=== PATIENT | male | born 1985 | race African-American/Black ===

== ENCOUNTER 2018-06-25 10:51 | Day surgery (SDC) | payer OTHER ==
--- NOTE | 2018-06-25 11:02 | ANESTHESIA ---
Pre-Anesthesia VS, & Labs - Diagnosis Left distal radius fx - Procedure ORIF left distal radius Height 5 ft 10 in Weight (kg) 86.18 kg - NPO >8 hours - Lab Results Lab results reviewed: No Home Medications and Allergies Home Medications: Ambulatory Orders Hydrocodone/Acetaminophen [Vicodin 5-300 mg Tablet] 1 each PO PRN PRN 06/24/18 Hydrocodone/Acetaminophen [Vicodin 5-300 mg Tablet] 1 each PO PRN 06/24/18 Allergies/Adverse Reactions: Allergies Allergy/AdvReac Type Severity Reaction Status Date / Time No Known Drug Allergies Allergy Verified 06/24/18 11:04 Anes History & Medical History - Anesthetic History Anesthesia Complications: reports: No previous complications Family history of Anesthesia Complications: Denies Family history of Malignant Hyperthermia: Denies - Medical History Cardiovascular: reports: None Pulmonary: reports: None Gastrointestinal: reports: None Urinary: reports: None Neuro: reports: None Musculoskeletal: reports: None, Other Endocrine/Autoimmune: reports: None Blood Disorders: reports: None Skin: reports: None Smoking Status: Never smoker Psychosocial: reports: No issues indicated - Surgical History General: Other Exam General: Alert Dental: WNL Mouth Opening: Greater than 4 Fingerbreadths Neck Mobility: Normal Mallampati classification: II Thyromental Distance: greater than 6 cm Plan Anesthesia Type: General Consent for Procedure(s) Verified and Reviewed: Yes Code Status: Attempt Resuscitation ASA classification: 1-Healthy patient Is this case an emergency?: No
[2018-06-25] MEDS ORDERED: BUPIVACAINE 0.5% PF 30 ML VIAL ONE (11:04)
[2018-06-25] MEDS ORDERED: LACTATED RINGERS 1,000 ML IV ONE ×2 (11:11→14:02)
[2018-06-25] MEDS ORDERED: ceFAZolin 2 GM/50 ML 2 GM/50 ML BAG IV ONE (11:25)
[2018-06-25] MEDS ORDERED: BUPIVACAINE 0.5% PF 30 ML VIAL INFIL ONE ×2 (12:36)
[2018-06-25] MEDS ORDERED: fentaNYL 100 MCG/2 ML VIAL IVP ONE (13:15)
[2018-06-25] MEDS ORDERED: PROPOFOL 200 MG/20 ML VIAL IVP ONE (13:15)
[2018-06-25] MEDS ORDERED: KETOROLAC 30 MG/ML VIAL IVP ONE (13:15)
[2018-06-25] MEDS ORDERED: ROCURONIUM 50 MG/5 ML VIAL IVP ONE (13:15)
[2018-06-25] MEDS ORDERED: ONDANSETRON 4 MG/2 ML VIAL IVP ONE (13:15)
[2018-06-25] MEDS ORDERED: MIDAZOLAM 2 MG/2 ML VIAL IVP ONE (13:15)
[2018-06-25] MEDS ORDERED: LIDOCAINE-MPF 2% 5 ML VIAL IM ONE (13:15)
[2018-06-25] MEDS ORDERED: ACETAMINOPHEN 1,000 MG/100 ML 100 ML IV ONE ×2 (13:15→14:30)
[2018-06-25] MEDS ORDERED: DEXAMETHASONE 4 MG/ML VIAL IVP ONE (13:15)
[2018-06-25] MEDS ORDERED: ONDANSETRON 4 MG/2 ML VIAL IVP PRN (14:16)
[2018-06-25] MEDS ORDERED: oxyCODONE 5 MG TABLET PO PRN (14:16)
--- NOTE | 2018-06-25 14:23 | OPERATIVE REPORT ---
Operative Report - General Procedure Date: 06/25/18 Planned Procedure: left distal radius ORIF Pre-Op Diagnosis: left distal radius fracture intra-articular. >3 parts Procedure Performed: ORIF L distal radius intra-articular > 3 parts Post Op Diagnosis: Same - Procedure Note Primary Surgeon: Bryce Sneed Estimated Blood Loss (mL): 10 Complications: None - Other Other Information/Narrative: Postoperative Protocol: Leave splint on until follow-up. Range of motion and brace from 2-6 weeks. Advance activities afterward if fractues are healed Indication For Surgery: 32-year-old male who sustained a right distal radius fracture when he was skiing on 20 June. He underwent a closed reduction under ketamine at [facility]. He had an intra-articular displaced fracture and the postreduction alignment was out of acceptable parameters. The risks, benefits, and alternatives were discussed. Risks include pain, bleeding, infection, damage to nearby structures, numbness, lack of symptom relief, implant complications, nonunion, need for further surgery, DVT, PE, stroke, and . Written consent was obtained. Procedure in Detail: The patient was met in the pre-operative hold area on the day of the procedure. The operative extremity was signed and questions were answered. The patient was brought to the operating room and a general anesthetic was administered. Supine position was used and bony prominences were padded. Standard prepping and draping was performed. A time out confirmed patient identification, laterality, procedure, allergies, antibiotics, and images. An Esmarch was used to exsanguinate the limb and the tourniquet was elevated to 200 mmHg. Total tourniquet time was 97 minutes. The trans-FCR approach was used. The FCR tendon was retracted ulnarly and the radial artery was retracted radially with a blunt retractor. Finger dissection was used to develop the plane above the quadratus. The quadratus had been torn at the fracture site but the proximal split sections were still intact. I released it from the radial aspect at its tendinous insertion and dissected it off of the volar surface of the radius. I then opened the fracture site and removed all blocks reduction. Periosteum was removed from the 2 mm closest to the fracture. I then performed a reduction maneuver and reduced the anterior cortex anatomically. This was then pinned in place from the radial styloid. Satisfied with the reduction on AP and lateral x-rays I then placed selected a plate that was wide enough to fix all the fracture fragments. I confirmed its position on x-ray and placed a single screw into the slotted hole. On the lateral x-ray I confirmed the position not distal to the watershed line. I then placed a K wire through the proximal K wire hole to assess trajectory. It was a few millimeters from the articular surface and I was happy with that. I then placed cortical screws on the ulnar side to fix them. And then one into the radial styloid. This compressed the plate nicely. The fracture reduction was maintained. I then placed locking and nonlocking screws into the distal fragment confirming their position on x-ray. I subtracted 2 mm from each measured length to ensure that they were not prominent. I then placed 2 additional screws into the shaft of the plate and retightened all cortical screws. Final x-rays were taken. The DRUJ was tested and it was stable. I then irrigated the wound copiously and closed the pronator with 0 Vicryl. The fascia was closed with 2-0 Vicryl and the skin with nylon. I placed 1/4% Marcaine just under the skin around the incision site. A sterile dressing and a volar resting splint was applied. The patient awakened and transferred to the recovery room.
[2018-06-25] MEDS ORDERED: HYDROmorphone 0.5 MG/0.5 ML SYRINGE ONE ×3 (14:30→15:00)
--- NOTE | 2018-06-25 14:34 | XRAY Report ---
Reason: LEFT WRIST FX Procedure Date: 06/25/2018 Accession Number: [id number] / [id number] Procedure: XR - Wrist 2 View LT CPT Code: FULL RESULT: EXAM: FLUOROSCOPIC GUIDANCE EXAM DATE: 06/25/2018 01:54 PM. CLINICAL HISTORY: Left wrist fracture. COMPARISON: Left wrist ORIF 06/25/2018 11:37 AM. FINDINGS: A distal radial fracture spanned by plate and screw construct is identified in AP and lateral views with no overt evidence of hardware failure/malpositioning. IMPRESSION: Fluoroscopic guidance provided for left wrist ORIF. Total fluoroscopy time: 26 seconds. Number of images: 2. RADIA
--- NOTE | 2018-06-25 14:34 | XRAY Report ---
Reason: fx wrist Procedure Date: 06/25/2018 Accession Number: [id number] / [id number] Procedure: FL - OR C-Arm Procedure CPT Code: FULL RESULT: EXAM: FLUOROSCOPIC GUIDANCE EXAM DATE: 06/25/2018 01:54 PM. CLINICAL HISTORY: Left wrist fracture. COMPARISON: Left wrist ORIF 06/25/2018 11:37 AM. FINDINGS: A distal radial fracture spanned by plate and screw construct is identified in AP and lateral views with no overt evidence of hardware failure/malpositioning. IMPRESSION: Fluoroscopic guidance provided for left wrist ORIF. Total fluoroscopy time: 26 seconds. Number of images: 2. RADIA
[2018-06-25] MEDS ORDERED: fentaNYL 100 MCG/2 ML VIAL ONE (15:00)
[2018-06-25] MEDS ORDERED: oxyCODONE 5 MG TABLET ONE (15:42)
[2018-06-25 15:56] VITALS: BP 160/88
== END 2018-06-25 10:52 | disposition home or self-care (01) ==
LOC: SDS 10:51
PROVIDERS: ATTEND Orthopaedic Surgery
PROC: 0PSL04Z Reposition Left Ulna with Internal Fixation Device, Open Approach (ICD-10-PCS; 2018-06-25)
PROC: 0PSJ04Z Reposition Left Radius with Internal Fixation Device, Open Approach (ICD-10-PCS; principal; 2018-06-25 12:15)
DX: S52.572A Other intraarticular fracture of lower end of left radius, initial encounter for closed fracture (principal); S52.602A Unspecified fracture of lower end of left ulna, initial encounter for closed fracture; Y93.23 Activity, snow (alpine) (downhill) skiing, snowboarding, sledding, tobogganing and snow tubing; Y92.828 Other wilderness area as the place of occurrence of the external cause; Y99.8 Other external cause status
CPT/HCPCS: 25609; 25652; 73100; A9270; C1713; J0131; J0690; J1170; J7120